=== PATIENT | male | born 1990 | race Two or more races ===

== ENCOUNTER 2018-09-17 08:52 | Emergency (ER) | payer MEDICAID, OTHER ==
[~2018-09-17] VITALS: Ht 172.7 cm; Wt 167.8 kg
[2018-09-17] MEDS ORDERED: IPRATROPIUM BROM 0.5 MG/2.5ML INH SOL NEB ONE (09:15)
[2018-09-17] MEDS ORDERED: ALBUTEROL SULF 2.5 MG/0.5ML(0.5%) NEB SOLN NEB ONE (09:15)
[2018-09-17 09:39] LABS: Basophils # (auto) 0.1 uL; Eosinophils # (auto) 0.5 uL; Hemoglobin 13.7 g/dL (13.5-17.5); Lymphocytes # (auto) 1.2 uL; Mean Corpuscular Volume 80.7 fL (80.0-100.0); Nucleated Red Blood Cells % 0.1 %; Red Cell Distribution Width 14.6 % (11.8-14.3); White Blood Cell 8.3 10^3/uL (4.4-10.8)
[2018-09-17 09:42] LABS: Basophils % (auto) 0.6 % (0.0-2.0); Eosinophils % (auto) 6.1 % (0.0-7.0); Hematocrit 41.6 % (41.0-53.0); Lymphocytes % (auto) 14.2 % (10.0-50.0); Mean Corpuscular Hemoglobin 26.5 pg (28.0-32.0); Mean Corpuscular Hgb Conc. 32.8 g/dL (32.0-36.0); Monocytes # (auto) 0.6 uL; Monocytes % (auto) 7.4 % (0.0-12.0); Neutrophils # (auto) 5.9 uL; Neutrophils % (auto) 71.7 % (37.0-80.0); Platelet Count (auto) 251 10^3/uL (140-450); Red Blood Cells 5.16 10^6/uL (4.5-5.90)
[2018-09-17 10:03] LABS: Alanine Aminotransferase 43 U/L (16-61); Albumin 3.3 g/dL (3.4-5.0); Anion Gap 6 (5-15); Aspartate Aminotransferase 44 U/L (15-37); BUN/Creatinine Ratio 15.4; Blood Urea Nitrogen 12 mg/dL (7-18); Carbon Dioxide 23 mmol/L (21-32); Chloride 110 mmol/L (98-107); GFR African American 152 mL/min; GFR Non-African American 126 mL/min; Glucose 115 mg/dL (74-106); Potassium 4.4 mmol/L (3.5-5.1); Sodium 139 mmol/L (136-145)
[2018-09-17 10:08] LABS: Alkaline Phosphatase 71 U/L (45-117); Bilirubin, Total 0.4 mg/dL (0.2-1.0); Total Protein 7.1 g/dL (6.4-8.2)
[2018-09-17] MEDS ORDERED: methylPREDNISolone SOD SUCC 125 MG/2 ML VL IV ONE (10:30)
[2018-09-17 10:46] LABS: INR 0.93 (0.9-1.15); Partial Thromboplastin Time 30.8 sec (23.78-33.04)
[2018-09-17 10:51] VITALS: BP 110/69
== END 2018-09-17 10:43 | disposition home or self-care (01) ==
LOC: ER 08:52
DX: J45.909 Unspecified asthma, uncomplicated (principal)
CPT/HCPCS: 36415; 71045; 80053; 84484; 85025; 85610; 85730; 94640; 96374; 99285; J2930; J7611; J7644

== ENCOUNTER 2018-11-23 11:34 | Emergency (ER) | payer SELFPAY ==
[~2018-11-23] VITALS: Ht 172.7 cm; Wt 167.8 kg
[2018-11-23] MEDS ORDERED: IPRATROPIUM BROM 0.5 MG/2.5ML INH SOL HHN ONE (12:30)
[2018-11-23] MEDS ORDERED: methylPREDNISolone SOD SUCC 125 MG/2 ML VL IV ONE (12:30)
[2018-11-23] MEDS ORDERED: ALBUTEROL SULF 2.5 MG/0.5ML(0.5%) NEB SOLN HHN ONE (12:30)
[2018-11-23 13:20] LABS: Basophils % (auto) 0.7 % (0.0-2.0); Eosinophils # (auto) 0.3 uL
[2018-11-23 13:22] LABS: Basophils # (auto) 0.1 uL; Eosinophils % (auto) 3.7 % (0.0-7.0); Hematocrit 43.5 % (41.0-53.0); Hemoglobin 14.2 g/dL (13.5-17.5); Lymphocytes # (auto) 1.5 uL; Lymphocytes % (auto) 21.1 % (10.0-50.0); Mean Corpuscular Hemoglobin 26.3 pg (28.0-32.0); Mean Corpuscular Hgb Conc. 32.7 g/dL (32.0-36.0); Mean Corpuscular Volume 80.2 fL (80.0-100.0); Monocytes # (auto) 0.4 uL; Neutrophils # (auto) 4.9 uL; Neutrophils % (auto) 68.5 % (37.0-80.0); Nucleated Red Blood Cells % 0.2 %; Platelet Count (auto) 244 10^3/uL (140-450); Red Blood Cells 5.42 10^6/uL (4.5-5.90); Red Cell Distribution Width 15.3 % (11.8-14.3); White Blood Cell 7.2 10^3/uL (4.4-10.8)
[2018-11-23 13:40] LABS: Albumin 3.6 g/dL (3.4-5.0); Calcium 8.5 mg/dL (8.5-10.1)
[2018-11-23 13:45] LABS: BUN/Creatinine Ratio 14.5; Bilirubin, Total 0.3 mg/dL (0.2-1.0); Total Protein 7.3 g/dL (6.4-8.2)
[2018-11-23 14:30] VITALS: BP 132/77
== END 2018-11-23 15:01 | disposition home or self-care (01) ==
LOC: ER 11:50
DX: J45.901 Unspecified asthma with (acute) exacerbation (principal)
CPT/HCPCS: 36415; 71046; 80053; 85025; 93005; 94644; 94761; 96374; 99284; J2930; J7611; J7644

== ENCOUNTER 2019-04-29 21:15 | Emergency (ER) | payer MEDICAID ==
[~2019-04-29] VITALS: Ht 172.7 cm; Wt 163.3 kg
[2019-04-29 21:30] VITALS: BP 169/98
[2019-04-29] MEDS ORDERED: IPRATROPIUM BROM 0.5 MG/2.5ML INH SOL NEB ONE (21:45)
[2019-04-29] MEDS ORDERED: ALBUTEROL SULF 2.5 MG/0.5ML(0.5%) NEB SOLN NEB ONE (21:45)
== END 2019-04-30 01:55 | disposition left against medical advice (07) ==
LOC: ER 21:15
DX: J45.901 Unspecified asthma with (acute) exacerbation (principal); Z53.21 Procedure and treatment not carried out due to patient leaving prior to being seen by health care provider
CPT/HCPCS: 71046; 94640; J7611; J7644

== ENCOUNTER 2019-05-01 09:46 | Emergency (ER) | payer MEDICAID ==
[~2019-05-01] VITALS: Ht 172.7 cm; Wt 163.3 kg
[2019-05-01 09:55] VITALS: BP 136/89
[2019-05-01] MEDS ORDERED: IPRATROPIUM BROM 0.5 MG/2.5ML INH SOL NEB ONE ×2 (10:00→10:45)
[2019-05-01] MEDS ORDERED: ALBUTEROL SULF 2.5 MG/0.5ML(0.5%) NEB SOLN NEB ONE ×2 (10:00→10:45)
[2019-05-01] MEDS ORDERED: methylPREDNISolone SOD SUCC 125 MG/2 ML VL IM ONE (10:45)
== END 2019-05-01 11:06 | disposition home or self-care (01) ==
LOC: ER 09:46
DX: J45.901 Unspecified asthma with (acute) exacerbation (principal)
CPT/HCPCS: 71046; 94640; 96372; 99284; J2930; J7611; J7644

== ENCOUNTER 2019-09-12 23:21 | Emergency (ER) | payer MEDICAID ==
[~2019-09-12] VITALS: Ht 172.7 cm; Wt 176.9 kg
[2019-09-12] MEDS ORDERED: ALBUTEROL SULF 2.5 MG/0.5ML(0.5%) NEB SOLN HHN STA (23:27)
[2019-09-12] MEDS ORDERED: IPRATROPIUM BROM 0.5 MG/2.5ML INH SOL NEB ONE ×2 (23:30→23:45)
[2019-09-12] MEDS ORDERED: IPRATROPIUM BROM 0.5 MG/2.5ML INH SOL ONE (23:37)
[2019-09-12] MEDS ORDERED: ALBUTEROL SULF 2.5 MG/0.5ML(0.5%) NEB SOLN ONE (23:37)
[2019-09-12] MEDS ORDERED: SODIUM CHLORIDE 0.9% 1,000 ML IV ONE (23:45)
[2019-09-12] MEDS ORDERED: methylPREDNISolone SOD SUCC 125 MG/2 ML VL IV ONE (23:45)
[2019-09-12] MEDS ORDERED: ALBUTEROL SULF 2.5 MG/0.5ML(0.5%) NEB SOLN NEB ONE (23:45)
[2019-09-12] MEDS ORDERED: TERBUTALINE SULFATE 1 MG/ML 1ML VIAL SC ONE (23:45)
[2019-09-12] MEDS: MAGNESIUM SULFATE 1GM/100ML 100 ML IV SCH (23:57)
[2019-09-13] MEDS ORDERED: ALBUTEROL SULF 2.5 MG/0.5ML(0.5%) NEB SOLN NEB ONE
[2019-09-13 00:05] LABS: Basophils # (auto) 0.1 uL; Basophils % (auto) 0.9 % (0.0-2.0); Eosinophils # (auto) 0.3 uL; Eosinophils % (auto) 3.1 % (0.0-7.0); Hematocrit 42.1 % (41.0-53.0); Hemoglobin 13.8 g/dL (13.5-17.5); Lymphocytes # (auto) 2.1 uL; Lymphocytes % (auto) 21.9 % (10.0-50.0); Mean Corpuscular Hemoglobin 26.2 pg (28.0-32.0); Mean Corpuscular Hgb Conc. 32.8 g/dL (32.0-36.0); Mean Corpuscular Volume 79.7 fL (80.0-100.0); Monocytes # (auto) 0.6 uL; Monocytes % (auto) 6.6 % (0.0-12.0); Neutrophils # (auto) 6.4 uL; Neutrophils % (auto) 67.5 % (37.0-80.0); Nucleated Red Blood Cells % 0.1 %; Platelet Count (auto) 262 10^3/uL (140-450); Red Blood Cells 5.29 10^6/uL (4.5-5.90); Red Cell Distribution Width 14.4 % (11.8-14.3); White Blood Cell 9.4 10^3/uL (4.4-10.8)
[2019-09-13 00:17] LABS: INR < 0.93 (0.9-1.15)
[2019-09-13 00:19] LABS: Alanine Aminotransferase 46 U/L (16-61); Albumin 3.5 g/dL (3.4-5.0); Anion Gap 7 (5-15); Aspartate Aminotransferase 20 U/L (15-37); BUN/Creatinine Ratio 15.1; Blood Urea Nitrogen 16 mg/dL (7-18); Calcium 9.1 mg/dL (8.5-10.1); Carbon Dioxide 29 mmol/L (21-32); Chloride 104 mmol/L (98-107); GFR African American 106 mL/min; GFR Non-African American 88 mL/min; Glucose 131 mg/dL (74-106); Potassium 3.9 mmol/L (3.5-5.1); Sodium 140 mmol/L (136-145)
[2019-09-13 00:24] LABS: Alkaline Phosphatase 68 U/L (45-117); Bilirubin, Total 0.2 mg/dL (0.2-1.0)
[2019-09-13] MEDS: MAGNESIUM SULFATE 1GM/100ML 100 ML IV SCH (00:50)
[2019-09-13] MEDS ORDERED: IPRATROPIUM BROM 0.5 MG/2.5ML INH SOL NEB PRN (03:15)
[2019-09-13] MEDS ORDERED: ONDANSETRON HCL 4 MG/2 ML VIAL IV PRN (03:15)
[2019-09-13] MEDS ORDERED: MORPHINE SULF INJ 2 MG/ML SYRINGE 1ML IV PRN (03:15)
[2019-09-13] MEDS ORDERED: ACETAMINOPHEN 500 MG TAB PO PRN (03:15)
[2019-09-13] MEDS ORDERED: LORazepam 2MG/ML-1ML VIAL IV PRN (03:30)
[2019-09-13] MEDS ORDERED: ALBUTEROL SULF 2.5 MG/0.5ML(0.5%) NEB SOLN NEB PRN (03:30)
[2019-09-13 03:35] VITALS: BP 122/73
[2019-09-13] MEDS ORDERED: IPRATROPIUM BROM 0.5 MG/2.5ML INH SOL NEB SCH (06:00)
[2019-09-13] MEDS ORDERED: methylPREDNISolone SOD SUCC 40 MG/ML VL IV SCH (06:00)
[2019-09-13] MEDS ORDERED: ALBUTEROL SULF 2.5 MG/0.5ML(0.5%) NEB SOLN NEB SCH (06:00)
== END 2019-09-13 03:55 | disposition left against medical advice (07) ==
LOC: ER 23:21 → TELE 23:22 → UNDOADMIN 23:22 → ER 09-13 03:55
DX: J45.901 Unspecified asthma with (acute) exacerbation (principal); F12.10 Cannabis abuse, uncomplicated
CPT/HCPCS: 36415; 71045; 80053; 84484; 85025; 85610; 85730; 93005; 94640; 94761; 96365; 96372; 99284; J2930; J3105; J3475; J7030; J7611; J7644

== ENCOUNTER → 2020-05-07 | Emergency (ER) | payer MEDICAID ==
[~2020-05-07] VITALS: Ht 172.7 cm; Wt 167.8 kg
[~2020-05-07] MED LIST: ALBUTEROL SULF 2.5 MG/0.5ML(0.5%) NEB SOLN NEB ONE; IPRATROPIUM BROM 0.5 MG/2.5ML INH SOL NEB ONE; methylPREDNISolone SOD SUCC 125 MG/2 ML VL IV ONE; methylPREDNISolone SOD SUCC 125 MG/2 ML VL ONE
[2020-05-07 09:04] LABS: Basophils # (auto) 0.1 10 ^3/uL (0-0.2); Eosinophils # (auto) 0.3 10 ^3/uL (0-0.8); Hematocrit 43.3 % (41.0-53.0); Hemoglobin 14.1 g/dL (13.5-17.5); Mean Corpuscular Hemoglobin 26.2 pg (28.0-32.0); Mean Corpuscular Hgb Conc. 32.6 g/dL (32.0-36.0); Monocytes # (auto) 0.6 10 ^3/uL (0-1.3); Nucleated Red Blood Cells % 0.1 %; Platelet Count (auto) 278 10^3/uL (140-450); Red Blood Cells 5.39 10^6/uL (4.5-5.90)
[2020-05-07 09:05] LABS: Eosinophils % (auto) 4.2 % (0.0-7.0); Lymphocytes # (auto) 1.8 10 ^3/uL (0.4-5.4); Lymphocytes % (auto) 22.6 % (10.0-50.0); Mean Corpuscular Volume 80.4 fL (80.0-100.0); Monocytes % (auto) 7.9 % (0.0-12.0); Neutrophils # (auto) 5.1 10 ^3/uL (1.6-8.6); Neutrophils % (auto) 64.3 % (37.0-80.0); Red Cell Distribution Width 14.6 % (11.8-14.3); White Blood Cell 7.9 10^3/uL (4.4-10.8)
[2020-05-07 09:26] LABS: Albumin 3.6 g/dL (3.4-5.0); BUN/Creatinine Ratio 26.3; Bilirubin, Total 0.3 mg/dL (0.2-1.0); Calcium 8.3 mg/dL (8.5-10.1)
[2020-05-07 11:11] VITALS: BP 107/75
== END | disposition home or self-care (01) ==
LOC: ER 07:35
DX: J45.902 Unspecified asthma with status asthmaticus (principal); E66.01 Morbid (severe) obesity due to excess calories; Z68.41 Body mass index [BMI] 40.0-44.9, adult; R74.8 Abnormal levels of other serum enzymes
CPT/HCPCS: 36415; 71045; 80053; 85025; 93005; 94640; 94644; 96374; 99285; J2930; J7644

== ENCOUNTER 2021-03-05 13:20 | Emergency (ER) | payer MEDICAID ==
[~2021-03-05] VITALS: Ht 172.7 cm; Wt 163.3 kg
[2021-03-05 13:28] VITALS: BP 138/88
[2021-03-05] MEDS ORDERED: ALBUTEROL SULF 2.5 MG/0.5ML(0.5%) NEB SOLN HHN ONE (13:45)
[2021-03-05] MEDS ORDERED: IPRATROPIUM BROM 0.5 MG/2.5ML INH SOL HHN ONE (13:45)
[2021-03-05] MEDS ORDERED: methylPREDNISolone SOD SUCC 125 MG/2 ML VL IV ONE (13:45)
[2021-03-05 14:11] LABS: Basophils # (auto) 0.1 10 ^3/uL (0-0.2); Eosinophils # (auto) 0.3 10 ^3/uL (0-0.8); Eosinophils % (auto) 3.3 % (0.0-7.0); Hemoglobin 14.5 g/dL (13.5-17.5); Mean Corpuscular Volume 79.8 fL (80.0-100.0); Monocytes # (auto) 0.8 10 ^3/uL (0-1.3); Neutrophils % (auto) 63.6 % (37.0-80.0)
[2021-03-05 14:13] LABS: Basophils % (auto) 0.8 % (0.0-2.0); Hematocrit 43.4 % (41.0-53.0); Lymphocytes % (auto) 23.3 % (10.0-50.0); Mean Corpuscular Hemoglobin 26.6 pg (28.0-32.0); Mean Corpuscular Hgb Conc. 33.4 g/dL (32.0-36.0); Neutrophils # (auto) 5.5 10 ^3/uL (1.6-8.6); Nucleated Red Blood Cells % 0.1 %; Platelet Count (auto) 269 10^3/uL (140-450); Red Blood Cells 5.44 10^6/uL (4.5-5.90); Red Cell Distribution Width 14.5 % (11.8-14.3); White Blood Cell 8.6 10^3/uL (4.4-10.8)
[2021-03-05 14:27] LABS: Albumin 3.5 g/dL (3.4-5.0); Potassium 4.1 mmol/L (3.5-5.1)
[2021-03-05 14:30] LABS: BUN/Creatinine Ratio 14.5; Bilirubin, Total 0.2 mg/dL (0.2-1.0); Total Protein 6.9 g/dL (6.4-8.2)
== END 2021-03-05 16:59 | disposition left against medical advice (07) ==
LOC: ER 13:20
DX: J45.52 Severe persistent asthma with status asthmaticus (principal)
CPT/HCPCS: 36415; 71045; 80053; 85025; 94644; 99285; J7644

== ENCOUNTER 2021-03-11 20:01 | Emergency (ER) | payer MEDICAID ==
[~2021-03-11] VITALS: Ht 175.3 cm; Wt 172.4 kg
[~2021-03-11 20:01] MED LIST changes: -ALBUTEROL SULF 2.5 MG/0.5ML(0.5%) NEB SOLN NEB ONE; +ALBUTEROL SULF 2.5 MG/0.5ML(0.5%) NEB SOLN NEB STA; -IPRATROPIUM BROM 0.5 MG/2.5ML INH SOL NEB ONE; -methylPREDNISolone SOD SUCC 125 MG/2 ML VL IV ONE; -methylPREDNISolone SOD SUCC 125 MG/2 ML VL ONE
[2021-03-11] MEDS ORDERED: IPRATROPIUM BROM 0.5 MG/2.5ML INH SOL NEB ONE ×2 (20:15→22:15)
[2021-03-11 20:21] VITALS: BP 183/103
[2021-03-11] MEDS ORDERED: ALBUTEROL SULF 2.5 MG/0.5ML(0.5%) NEB SOLN NEB ONE (22:15)
== END 2021-03-12 01:03 | disposition left against medical advice (07) ==
LOC: ER 20:01
DX: J45.901 Unspecified asthma with (acute) exacerbation (principal); F20.9 Schizophrenia, unspecified; E66.01 Morbid (severe) obesity due to excess calories; Z68.43 Body mass index [BMI] 50.0-59.9, adult
CPT/HCPCS: 71046; 94010; 94640; 99284; J7644

== ENCOUNTER 2022-04-04 11:08 | Inpatient (IN) | payer MEDICAID ==
[~2022-04-04] VITALS: Ht 170.2 cm; Wt 187.0 kg
[2022-04-04] MEDS ORDERED: ALBUTEROL SULF 2.5 MG/0.5ML(0.5%) NEB SOLN HHN ONE (11:30)
[2022-04-04] MEDS ORDERED: IPRATROPIUM BROM 0.5 MG/2.5ML INH SOL HHN ONE (11:30)
[2022-04-04] MEDS ORDERED: methylPREDNISolone SOD SUCC 125 MG/2 ML VL IV ONE (11:30)
[2022-04-04 11:54] LABS: Basophils # (auto) 0.1 10 ^3/uL (0-0.2); Basophils % (auto) 0.5 % (0.0-2.0); Eosinophils # (auto) 0.1 10 ^3/uL (0-0.8); Eosinophils % (auto) 0.7 % (0.0-7.0); Hematocrit 39.9 % (41.0-53.0); Hemoglobin 13.3 g/dL (13.5-17.5); Lymphocytes # (auto) 1.3 10 ^3/uL (0.4-5.4); Lymphocytes % (auto) 7.9 % (10.0-50.0); Mean Corpuscular Hgb Conc. 33.4 g/dL (32.0-36.0); Mean Corpuscular Volume 80.9 fL (80.0-100.0); Monocytes % (auto) 6.4 % (0.0-12.0); Neutrophils # (auto) 13.5 10 ^3/uL (1.6-8.6); Neutrophils % (auto) 84.5 % (37.0-80.0); Red Blood Cells 4.94 10^6/uL (4.5-5.90); Red Cell Distribution Width 14.3 % (11.8-14.3)
[2022-04-04 12:13] LABS: Albumin 3.3 g/dL (3.4-5.0); BUN/Creatinine Ratio 7.4; Calcium 8.5 mg/dL (8.5-10.1); Potassium 3.7 mmol/L (3.5-5.1)
[2022-04-04 12:16] LABS: Bilirubin, Total 0.4 mg/dL (0.2-1.0); Total Protein 7.3 g/dL (6.4-8.2)
[2022-04-04 12:22] LABS: Lactic Acid w/Reflex 2.4 mmol/L (0.4-2.0)
[2022-04-04 12:59] LABS: CRP High Sensitivity 10.6 mg/dL (< 0.3)
[2022-04-04] MEDS ORDERED: ACETAMINOPHEN 325 MG TAB PO ONE (14:15)
[2022-04-04] MEDS ORDERED: cefTRIAXone 1GM/50ML D5W 50 ML IV ONE (15:45)
[2022-04-04] MEDS ORDERED: AZITHROMYCIN 500MG/ 250ML 250 ML IV ONE (15:45)
[2022-04-04] MEDS ORDERED: ACETAMINOPHEN 325 MG TAB PO PRN (16:00)
[2022-04-04] MEDS ORDERED: DOCUSATE SOD 100 MG CAP PO PRN (16:00)
[2022-04-04] MEDS ORDERED: ONDANSETRON HCL 4 MG/2 ML VIAL IV PRN (16:00)
[2022-04-04] MEDS ORDERED: MORPHINE SULFATE INJECTION 2 MG/ML SYRG IV PRN ×2 (16:00)
[2022-04-04] MEDS ORDERED: TEMAZEPAM 15 MG CAP PO PRN (16:00)
[2022-04-04] MEDS ORDERED: NITROGLYCERIN 0.4 MG SL TAB SL PRN (16:00)
[2022-04-04] MEDS ORDERED: HYDROcodone-ACET 5/325MG TAB PO PRN (16:00)
[2022-04-04 18:19] LABS: Urine Bacteria NONE SEEN /hpf (None Seen); Urine Blood Negative /uL (Negative); Urine Mucus FEW (None Seen); Urine Specific Gravity 1.022 (1.001-1.035); Urine WBC 2 /hpf (0 - 3)
[2022-04-04 20:08] VITALS: BP 135/65
[2022-04-04] MEDS ORDERED: hydrALAZINE HCL 20 MG/ML VL IV PRN (20:30)
[2022-04-04] MEDS: ALBUTEROL SULF 2.5 MG/0.5ML(0.5%) NEB SOLN NEB PRN (20:59)
[2022-04-04 21:08] VITALS: BP 135/65
[2022-04-04 22:00] VITALS: BP 146/85
[2022-04-04] MEDS: ASCORBIC ACID 500 MG TAB PO SCH (22:23)
[2022-04-05 05:00] VITALS: BP 143/68
[2022-04-05 07:09] LABS: Basophils # (auto) 0.1 10 ^3/uL (0-0.2); Basophils % (auto) 0.4 % (0.0-2.0); Eosinophils # (auto) 0 10 ^3/uL (0-0.8); Eosinophils % (auto) 0.1 % (0.0-7.0); Hematocrit 41.3 % (41.0-53.0); Hemoglobin 13.7 g/dL (13.5-17.5); Lymphocytes # (auto) 1.4 10 ^3/uL (0.4-5.4); Lymphocytes % (auto) 7.9 % (10.0-50.0); Mean Corpuscular Hgb Conc. 33.3 g/dL (32.0-36.0); Mean Corpuscular Volume 81.2 fL (80.0-100.0); Monocytes # (auto) 1.6 10 ^3/uL (0-1.3); Monocytes % (auto) 9.1 % (0.0-12.0); Neutrophils % (auto) 82.5 % (37.0-80.0); Nucleated Red Blood Cells % 0.1 %; Red Blood Cells 5.08 10^6/uL (4.5-5.90); Red Cell Distribution Width 14.4 % (11.8-14.3)
[2022-04-05 07:25] LABS: Albumin 3.3 g/dL (3.4-5.0); Calcium 9.1 mg/dL (8.5-10.1); Potassium 4.6 mmol/L (3.5-5.1)
[2022-04-05 07:35] LABS: BUN/Creatinine Ratio 15.1; Bilirubin, Total 0.2 mg/dL (0.2-1.0); Total Protein 7.9 g/dL (6.4-8.2)
[2022-04-05] MEDS: ALBUTEROL SULF 2.5 MG/0.5ML(0.5%) NEB SOLN NEB PRN ×3 (07:43→17:53)
[2022-04-05] MEDS: ASCORBIC ACID 500 MG TAB PO SCH (08:12)
[2022-04-05 08:57] VITALS: BP 118/69
[2022-04-05] MEDS ORDERED: ZINC SULFATE 220mg CAP or TAB PO SCH (10:00)
[2022-04-05] MEDS ORDERED: levoFLOXacin 500MG 100 ML IV SCH (10:00)
[2022-04-05] MEDS ORDERED: MULTIPLE VITAMIN TAB PO SCH (10:00)
[2022-04-05 13:00] VITALS: BP 124/91
[2022-04-05 17:00] VITALS: BP 119/75
[2022-04-05] MEDS ORDERED: LEVO500T31 PO (17:27)
== END 2022-04-05 18:25 | disposition home or self-care (01) | DRG 139 ==
LOC: ER 11:08 → TELE 15:57 → TELE-WESTW 19:42
PROVIDERS: ADMIT Internal Medicine; ATTEND Internal Medicine
DX: J18.9 Pneumonia, unspecified organism (principal); J96.00 Acute respiratory failure, unspecified whether with hypoxia or hypercapnia; E66.01 Morbid (severe) obesity due to excess calories; F20.9 Schizophrenia, unspecified; J45.909 Unspecified asthma, uncomplicated; Z20.822 Contact with and (suspected) exposure to COVID-19; E11.65 Type 2 diabetes mellitus with hyperglycemia; Z68.44 Body mass index [BMI] 60.0-69.9, adult; Z83.3 Family history of diabetes mellitus; Z79.84 Long term (current) use of oral hypoglycemic drugs
CPT/HCPCS: 36415; 71045; 80053; 81001; 82728; 83605; 83880; 84484; 85025; 85379; 86141; 87040; 93005; 94640; 94644; 96365; 96368; 96375; G0378; J0696; J1956

== ENCOUNTER 2024-08-03 04:18 | Emergency (ER) | payer MEDICAID ==
[~2024-08-03] VITALS: Ht 170.2 cm; Wt 84.0 kg
[~2024-08-03 04:18] MED LIST changes: -ALBUTEROL SULF 2.5 MG/0.5ML(0.5%) NEB SOLN NEB STA; +LEVO500T31 PO
[2024-08-03 04:46] VITALS: PULSE 96; RESP 24; O2SAT 93
[2024-08-03 05:00] VITALS: TEMP 96.5
[2024-08-03] MEDS: methylPREDNISolone SOD SUCC 125 MG/2 ML VL IV ONE (06:39)
[2024-08-03] MEDS: ALBUTEROL SULF 2.5 MG/0.5ML(0.5%) NEB SOLN NEB ONE (06:49)
[2024-08-03 06:50] LABS: Basophils # (auto) 0.1 10 ^3/uL (0-0.2); Basophils % (auto) 0.8 % (0.0-2.0); Eosinophils # (auto) 0.3 10 ^3/uL (0-0.8); Eosinophils % (auto) 3.2 % (0.0-7.0); Hematocrit 42.5 % (41.0-53.0); Hemoglobin 14.4 g/dL (13.5-17.5); Lymphocytes # (auto) 2.7 10 ^3/uL (0.4-5.4); Lymphocytes % (auto) 26.5 % (10.0-50.0); Mean Corpuscular Hemoglobin 27.7 pg (28.0-32.0); Mean Corpuscular Hgb Conc. 33.8 g/dL (32.0-36.0); Mean Corpuscular Volume 81.9 fL (80.0-100.0); Monocytes # (auto) 0.9 10 ^3/uL (0-1.3); Monocytes % (auto) 8.6 % (0.0-12.0); Neutrophils # (auto) 6.2 10 ^3/uL (1.6-8.6); Neutrophils % (auto) 60.9 % (37.0-80.0); Platelet Count (auto) 302 10^3/uL (140-450); Red Blood Cells 5.19 10^6/uL (4.5-5.90); Red Cell Distribution Width 14.7 % (11.8-14.3); White Blood Cell 10.2 10^3/uL (4.4-10.8)
[2024-08-03 07:01] LABS: Alanine Aminotransferase 33 U/L (7-40); Albumin 4.3 g/dL (3.2-4.8); Alkaline Phosphatase 77 U/L (46-116); Anion Gap 7 (5-15); Aspartate Aminotransferase 17 U/L (13-40); BUN/Creatinine Ratio 11.6 (10.0-20.0); Blood Urea Nitrogen 10 mg/dL (9-23); Calcium 8.9 mg/dL (8.7-10.4); Carbon Dioxide 25 mmol/L (20-30); Chloride 106 mmol/L (98-107); Glucose 124 mg/dL (74-106); Potassium 3.8 mmol/L (3.5-5.1); Sodium 138 mmol/L (136-145)
[2024-08-03 07:02] LABS: Bilirubin, Total 0.3 mg/dL (0.2-1.0); Total Protein 6.8 g/dL (5.7-8.2)
[2024-08-03 09:00] VITALS: BP 141/94; PULSE 58; RESP 22; O2SAT 98
[2024-08-03] MEDS ORDERED: ALBUAER3 IN (09:23)
[2024-08-03] MEDS ORDERED: AZITTAB2 PO (09:23)
[2024-08-03] MEDS ORDERED: PRED20TA2 PO (09:23)
== END 2024-08-03 09:53 | disposition home or self-care (01) ==
LOC: EDBD 04:18 → ER 04:18
DX: J45.901 Unspecified asthma with (acute) exacerbation (principal); F12.10 Cannabis abuse, uncomplicated
CPT/HCPCS: 36415; 71045; 80053; 84484; 85025; 93005; 94640; 96374; 99285; J2919

== ENCOUNTER 2024-11-15 23:18 | Emergency (ER) | payer MEDICAID ==
[~2024-11-15] VITALS: Ht 175.3 cm; Wt 180.0 kg
[~2024-11-15 23:18] MED LIST changes: +ALBUAER3 IN; +AZITTAB2 PO; +PRED20TA2 PO
--- NOTE | 2024-11-15 23:35 | ED.PDOC ---
SOB-HPI HPI Comments 34-year-old male with PMHx Schizophrenia, Asthma brought in by EMS presents with a chief complaint of SOB, cough, wheezing, and throat pain x onset this evening. Patient reports that he smokes marijuana everyday. Patient reports that his throat pain and wheezing began after smoking this evening. Patient was given a dual neb breathing treatment by EMS en route. Patient denies any active chest pain. Chief Complaint: Shortness of Breath Time Seen by MD: 23:28 Primary Care Provider: NONE Reviewed notes: Medications, Allergies Information Source: Patient, Emergency Med Personnel Mode of Arrival: EMS Severity: Moderate Timing: Hours Duration: Since onset Context: Spontaneous Onset PE Risk Factors: None History of: Asthma Prehospital treatment: Breathing Tx Associated Signs and Symptoms: Wheeze, Cough, Sore Throat If cough with SOB: Non-Productive Past Medical History PAST MEDICAL HISTORY: Asthma, Schizophrenia Surgical History: Hernia Repair Family History Family History: Family hx of DM Social History Smoker: Non-Smoker Alcohol: Denies ETOH Use Drugs: Marijuana Lives In: Home Constitutional: denies: chills, diaphoresis, fatigue, fever, malaise, sweats, weakness, others EENTM: denies: blurred vision, double vision, ear bleeding, ear discharge, ear drainage, ear pain, ear ringing, eye pain, eye redness, hearing loss, mouth pain, mouth swelling, nasal discharge, nose bleeding, nose congestion, nose pain, photophobia, tearing, throat pain, throat swelling, voice changes, others Respiratory: reports: cough, shortness of breath, wheezing; denies: hemoptysis, orthopnea, SOB at rest, SOB with excertion, stridor, others Cardiovascular: denies: chest pain, dizzy spells, diaphoresis, Dyspnea on exertion, edema, irregular heart beat, left arm pain, lightheadedness, palpitations, PND, syncope, others Gastrointestinal: denies: abdomen distended, abdominal pain, blood streaked bowels, constipated, diarrhea, dysphagia, difficulty swallowing, hematemesis, melena, nausea, poor appetite, poor fluid intake, rectal bleeding, rectal pain, vomiting, others Genitourinary: denies: burning, dysuria, flank pain, frequency, hematuria, incontinence, penile discharge, penile sore, pain, testicle pain, testicle swelling, urgency, others Neurological: denies: dizziness, fainting, headache, left sided numbness, left sided weakness, numbness, paresthesia, pre-existing deficit, right sided numbness, right sided weakness, seizure, speech problems, tingling, tremors, weakness, others Musculoskeletal: denies: back pain, gout, joint pain, joint swelling, muscle pain, muscle stiffness, neck pain, others Integumetry: denies: bruises, change in color, change in hair/nails, dryness, laceration, lesions, lumps, rash, wounds, others Allergic/Immunocompromised: denies: Difficulty Healing, Frequent Infections, Hives, Itching, others Hematologic/Lymphatic: denies: anemia, blood clots, easy bleeding, easy bruising, swollen glands, others Endocrine: denies: excessive hunger, excessive sweating, excessive thirst, excessive urination, flushing, intolerance to cold, intolerance to heat, unexplained weight gain, unexplained weight loss, others Psychiatric: denies: anxiety, bipolar disorder, depression, hopeless, panic disorder, schizophrenia, sleepless, suicidal, others All Other Systems: Reviewed and Negative Physical Exam General Appearance: No Apparent Distress, Normal HEENT: Normal ENT Inspection, Pharynx Normal, TMs Normal Neck: Full Range of Motion, Non-Tender, Normal, Normal Inspection Respiratory: Chest Non-Tender, Lungs Clear, No Accessory Muscle Use, Normal Breath Sounds, Wheezing Cardiovascular: No Edema, No JVD, No Murmur, No Gallop, Normal Peripheral Pulses, Regular Rate/Rhythm Breast Exam: Deferred Gastrointestinal: No Organomegaly, Non Tender, No Pulsatile Mass, Normal Bowel Sounds, Soft Genitalia: Deferred Pelvic: Deferred Rectal: Deferred Extremities: No calf tenderness, Normal capillary refill, Normal inspection, Normal range of motion, Non-tender, No pedal edema Musculoskeletal : Apperance: Normal Neurologic: Alert, 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 Was a procedure done?: No Differential Dx Differential Diagnosis: Pharyngitis, URI X-Ray, Labs, Meds, VS Vital Signs Date Time Temp Pulse Resp B/P (MAP) Pulse Ox O2 Delivery O2 Flow Rate FiO2 11/16/24 00:05 97.8 100 22 146/66 (92) 92 97.8 11/15/24 23:24 98.8 94 22 146/76 (99) 99 11/15/24 23:21 97 Lab Test 11/15/24 23:51 Range/Units White Blood Count 11.7 H 4.4-10.8 10^3/uL Red Blood Count 5.14 4.5-5.90 10^6/uL Hemoglobin 13.7 13.5-17.5 g/dL Hematocrit 42.1 41.0-53.0 % Mean Corpuscular Volume 81.9 80.0-100.0 fL Mean Corpuscular Hemoglobin 26.7 L 28.0-32.0 pg Mean Corpuscular Hemoglobin Concent 32.6 32.0-36.0 g/dL Red Cell Distribution Width 14.2 11.8-14.3 % Platelet Count 274 140-450 10^3/uL Mean Platelet Volume 8.2 6.9-10.8 fL Neutrophils (%) (Auto) 74.2 37.0-80.0 % Lymphocytes (%) (Auto) 16.4 10.0-50.0 % Monocytes (%) (Auto) 6.3 0.0-12.0 % Eosinophils (%) (Auto) 2.4 0.0-7.0 % Basophils (%) (Auto) 0.7 0.0-2.0 % Neutrophils # (Auto) 8.7 H 1.6-8.6 10 ^3/uL Lymphocytes # (Auto) 1.9 0.4-5.4 10 ^3/uL Monocytes # (Auto) 0.7 0-1.3 10 ^3/uL Eosinophils # (Auto) 0.3 0-0.8 10 ^3/uL Basophils # (Auto) 0.1 0-0.2 10 ^3/uL Nucleated Red Blood Cells 0.0 % Sodium Level 139 136-145 mmol/L Potassium Level 3.9 3.5-5.1 mmol/L Chloride Level 106 98-107 mmol/L Carbon Dioxide Level 26 20-31 mmol/L Anion Gap 7 5-15 Blood Urea Nitrogen 14 9-23 mg/dL Creatinine 0.94 0.700-1.30 mg/dL Glomerular Filtration Rate Calc 109 >90 mL/min BUN/Creatinine Ratio 14.9 10.0-20.0 Serum Glucose 113 H 74-106 mg/dL Calcium Level 9.5 8.7-10.4 mg/dL Current Medications Medications (Trade) Dose Ordered Sig/Sara Route Start Time Stop Time Status Last Admin Belladonna Alkaloids/ Phenobarbital ( Elixir) 10 ml ONCE ONCE PO 11/15/24 23:45 11/15/24 23:46 DC 11/16/24 00:04 Al Hydrox/Mg Hydrox/Simethicone (Maalox Plus) 30 ml ONCE ONCE PO 11/15/24 23:45 11/15/24 23:46 DC 11/16/24 00:03 Lidocaine HCl (Xylocaine 2% Viscous) 15 ml ONCE ONCE PO 11/15/24 23:45 11/15/24 23:46 DC 11/16/24 00:04 Time of 1ST Reevaluation: 23:58 Reevaluation 1ST: Unchanged Patient Education/Counseling: Diagnosis, Treatment, Prognosis Family Education/Counseling: No Family Present Departure 1 Departure Time of Disposition: 01:46 (Patient likely with viral syndrome. Patient refusing all interventions. Patient being combative with the nurses bedding on the floor. Patient does not have any emergent medical condition. We will discharge patient home) Impression: Primary Impression: Acute viral syndrome Disposition: 01 HOME / SELF CARE / HOMELESS Condition: Stable Additional Instructions: You likely have a viral illness. You refused our attempts at medication. It is important to stay well rested and well hydrated. You can take Tylenol and Motrin as needed for pain and fever. For a sore throat you can drink warm tea with honey. You can take [id number] pseudoephedrine for nasal congestion. He should follow up with your regular doctor within 1 week to ensure you are doing better. If your symptoms worsen or you have any other concerns please return to the emergency room. Discharged With: Self Critical Care Note Critical Care Time?: No Stability Stability form required: No Heart Score Heart Score: Heart Score Response (Comments) Value History N/A 0 EKG N/A 0 Age N/A 0 Risk Factors N/A 0 Troponin N/A 0 Total 0 I personally scribed for ANTONIO COSTA MD ([email or web address]) on 11/15/24 at 23:35. Electronically submitted by Holden Santos ([email or web address]). ANTONIO COSTA MD Nov 15, 2024 23:35
--- NOTE | 2024-11-15 23:39 | ECG ---
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
[2024-11-15] MEDS: IPRATROPIUM BROM 0.5 MG/2.5ML INH SOL NEB ONE (23:45)
[2024-11-15] MEDS: ALBUTEROL SULF 2.5 MG/0.5ML(0.5%) NEB SOLN NEB ONE (23:45)
[2024-11-15 23:59] LABS: Basophils # (auto) 0.1 10 ^3/uL (0-0.2); Eosinophils # (auto) 0.3 10 ^3/uL (0-0.8); Mean Corpuscular Hgb Conc. 32.6 g/dL (32.0-36.0); Monocytes # (auto) 0.7 10 ^3/uL (0-1.3)
[2024-11-16] LABS: Basophils % (auto) 0.7 % (0.0-2.0); Eosinophils % (auto) 2.4 % (0.0-7.0); Hematocrit 42.1 % (41.0-53.0); Hemoglobin 13.7 g/dL (13.5-17.5); Lymphocytes # (auto) 1.9 10 ^3/uL (0.4-5.4); Lymphocytes % (auto) 16.4 % (10.0-50.0); Mean Corpuscular Hemoglobin 26.7 pg (28.0-32.0); Mean Corpuscular Volume 81.9 fL (80.0-100.0); Monocytes % (auto) 6.3 % (0.0-12.0); Neutrophils # (auto) 8.7 10 ^3/uL (1.6-8.6); Neutrophils % (auto) 74.2 % (37.0-80.0); Platelet Count (auto) 274 10^3/uL (140-450); Red Blood Cells 5.14 10^6/uL (4.5-5.90); Red Cell Distribution Width 14.2 % (11.8-14.3); White Blood Cell 11.7 10^3/uL (4.4-10.8)
[2024-11-16] MEDS: MAALOX PLUS or MAALOX 30 ML PO ONE (00:03)
[2024-11-16] MEDS: DONNATAL 5ml ORAL Elix (BELLADONNA ALK-PHENOBARB) PO ONE (00:04)
[2024-11-16] MEDS: LIDOCAINE VISCOUS 2% 15ML UD PO ONE (00:04)
[2024-11-16 00:05] VITALS: BP 146/66; PULSE 100; RESP 22; TEMP 97.8; O2SAT 92
[2024-11-16 00:06] LABS: Chloride 106 mmol/L (98-107); Potassium 3.9 mmol/L (3.5-5.1); Sodium 139 mmol/L (136-145)
[2024-11-16 00:07] LABS: Anion Gap 7 (5-15); Calcium 9.5 mg/dL (8.7-10.4); Carbon Dioxide 26 mmol/L (20-31)
[2024-11-16] MEDS: DexAMETHasone SOD PHOS 10MG/1ML VIAL INJ PO ONE (00:12)
[2024-11-16 00:13] LABS: BUN/Creatinine Ratio 14.9 (10.0-20.0); Blood Urea Nitrogen 14 mg/dL (9-23)
[2024-11-16 00:16] LABS: Glucose 113 mg/dL (74-106)
--- NOTE | 2024-11-16 00:41 | DVH ---
EXAM: XY CHEST TWO VIEWS ROUTINE CLINICAL HISTORY: sob TECHNIQUE: Frontal view of the chest WID: COMPARISON: 08/03/2024 FINDINGS: Lines and tubes: None Chest: The heart size and pulmonary vasculature is within normal limits. No pleural effusion, pneumothorax, or consolidation. The osseous structures are grossly intact. IMPRESSION: No acute cardiopulmonary abnormality.
== END 2024-11-16 01:53 | disposition home or self-care (01) ==
LOC: ER 23:18 → EDBD 23:18 → ER 11-16 01:53
DX: B34.9 Viral infection, unspecified (principal); J45.909 Unspecified asthma, uncomplicated; F20.9 Schizophrenia, unspecified; F12.90 Cannabis use, unspecified, uncomplicated; Z98.890 Other specified postprocedural states
CPT/HCPCS: 36415; 71046; 80048; 85025; 93005; 99285; J1100